=== PATIENT | female | born 1990 | race Caucasian/White ===

== ENCOUNTER 2016-07-27 12:01 | Emergency (ER) | payer MEDICAID, OTHER ==
--- NOTE | 2016-07-27 14:25 | EDDOCDS ---
Physician Documentation [facility] Name: Soraya Andrade Age: 26 yrs Sex: Female : 1990 Arrival Date: 07/27/2016 Time: 12:01 Bed TR8 Private MD: Yaneth Garner Disposition: 07/27/16 14:17 Discharged to Home/Self Care. Impression: Dental caries - Tooth Pain/Abscess/Fracture. - Condition is Stable. - Discharge Instructions: Dental Abscess, Dental Fracture, Dental Pain, [id number]. - Prescriptions for Clindamycin HCl 300 mg Oral Capsule - take 1 capsule by ORAL route every 6 hours; 40 capsule. Ibuprofen 800 mg Oral Tablet - take 1 tablet by ORAL route every 8 hours As needed take with food; 30 tablet. Ocate 5- 325 mg Oral Tablet - take 1 tablet by ORAL route every 6 hours As needed MDD: 4 tabs; 10 tablet. - Medication Reconciliation, Local Pharmacy Hours form. - Follow up: Dentist Your; When: 1 - 2 days; Reason: Further diagnostic work-up, Recheck today's complaints, Continuance of care. Follow up: Emergency Department; Reason: Worsening of conditions. - Problem is new. - Symptoms are unchanged. Historical: - Allergies: no known allergies; - Home Meds: 1. Effexor 75 mg oral tab 3 tab once daily - PMHx: Anxiety; Depression; - PSHx: none; - Social history: Smoking status: Patient uses tobacco products, current every day smoker. No barriers to communication noted, The patient speaks fluent Amharic, Speaks appropriately for age. - Family history: Not pertinent. - : The pt / caregiver states he / she is not on anticoagulants. Home medication list is obtained from the patient. - Exposure Risk Screening:: None identified. 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 1 in. (154.94 cm) (R); 14:20 BP 137 / 80; Pulse 98; Resp 18; Temp 98; Pulse Ox 99% ; ms18 12:04 Body Mass Index 26.45 (63.50 kg, 154.94 cm) dd6 MDM: 14:02 Financial registration complete. lg Signatures: Ayo Mark, Reg Reg lg Karena Franks PA-C PA-C ef1 Mana Quinones,RN RN ead Rosalie Mcgill RN RN ms18 MTDD
--- NOTE | 2016-07-27 14:25 | EDDOCDS ---
Nurse's Notes [facility] Name: Soraya Andrade Age: 26 yrs Sex: Female : 1990 Arrival Date: 07/27/2016 Time: 12:01 Bed TR8 Private MD: Yaneth Garner Diagnosis: Dental caries-Tooth Pain/Abscess/Fracture Presentation: 07/27 12:13 Presenting complaint: Patient states: pt c/o toothache since two days ago. pt states ead she is to have teeth removed from left side, also reports "lump" to right lower jaw. Adult Sepsis Screening: The patient does not have new or worsening altered mentation. Patient's respiratory rate is less than 22. Systolic blood pressure is greater than 100. Patient has a qSOFA score of 0- Negative Sepsis Screen. Suicide/Homicide risk assessment- the patient denies having any suicidal and/or homicidal ideations and does not present with any other emotional, behavioral or mental health complaints. 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 Transition of care: patient was not received from another setting of care. 12:13 Acuity: SHIRA Level 5 ead 12:13 Method Of Arrival: Walkin/Carried/Asstd ead Triage Assessment: 12:16 General: Appears in no apparent distress, comfortable, Behavior is appropriate for age, ead cooperative. Pain: Location: mouth Pain currently is 4 out of 10 on a pain scale. HIV screening NA for this visit Offered previously. Neurological: Level of Consciousness is awake, alert, obeys commands, Oriented to person, place, time. EENT: Reports pain in mouth Denies difficulty swallowing. Respiratory: Airway is patent Respiratory effort is even, unlabored. Derm: Skin is pink, warm & dry. 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 Effexor 75 mg oral tab 3 tab once daily - PMHx: Anxiety; Depression; - PSHx: none; - Social history: Smoking status: Patient uses tobacco products, current every day smoker. No barriers to communication noted, The patient speaks fluent Kyrgyz, Speaks appropriately for age. - Family history: Not pertinent. - : The pt / caregiver states he / she is not on anticoagulants. Home medication list is obtained from the patient. - Exposure Risk Screening:: None identified. Screenin:20 Screening information is obtained from the patient. Fall risk: No risks identified. ms18 Assistance ADL's: requires no assistance with activities of daily living. Abuse/DV Screen: The patient / caregiver reports he/she is: not in a situation that causes fear, pain or injury. Nutritional screening: No deficits noted. Advance Directives: There is no living will. home support is adequate. Assessment: 14:20 General: Appears in no apparent distress, uncomfortable, Behavior is appropriate for ms18 age, cooperative. Pain: Location: mouth. Pain: Pain currently is 9 out of 10 on a pain scale. Neurological: Level of Consciousness is awake, alert, obeys commands, Oriented to person, place, time. EENT: Poor dentition noted. Respiratory: No deficits noted. Derm: Skin is pink, warm & dry. Vital Signs: 12:04 BP 143 / 83; Pulse 105; Resp 18 S; Temp 98.0(O); Pulse Ox 100% on R/A; Weight 63.5 kg dd6 (R); Height 5 ft. 1 in. (154.94 cm) (R); 14:20 BP 137 / 80; Pulse 98; Resp 18; Temp 98; Pulse Ox 99% ; ms18 12:04 Body Mass Index 26.45 (63.50 kg, 154.94 cm) dd6 Vitals: 12:04 Log In Time: July 27, 2016 at 12:02. dd6 ED Course: 12:03 Patient visited by Monroe Chavez PCA. dd6 12:03 Patient moved to Waiting dd6 12:04 Yaneth Garner is Private Physician. dd6 12:05 Patient moved to Pre RCE dd6 12:15 Triage Initiated ead 13:43 Patient moved to Triage 2 ar3 14:01 [facility]anks [facility]. ef1 14:01 Marizol Choi MD is Attending Physician. ef1 14:01 Patient visited by Karena Franks PA-C. ef1 14:14 Patient visited by Karena Franks PA-C. ef1 14:16 Your, Dentist is Referral Physician. ef1 14:20 Patient moved to TR8 ms18 14:20 The patient / caregiver is instructed regarding the plan of care and ED course. ms18 Accompanied by Caregiver, Patient has correct armband on for positive identification. Property sent home with patient. :Personal belongings accompany Pt. 14:20 No IV's were initiated during this patient's visit. No procedures done that require ms18 assistance. Order Results: There are currently no results for this order. Outcome: 14:17 Discharge ordered by Provider. ef1 14:20 Discharge Assessment: Patient awake, alert and oriented x 3. No cognitive and/or ms18 functional deficits noted. Patient verbalized understanding of disposition instructions. patient administered narcotics - no. The following High Risk Discharge criteria are identified: None. Discharged to home ambulatory. Condition: good Condition: stable Condition: improved. Discharge instructions given to patient, Instructed on discharge instructions, follow up and referral plans. medication usage, Demonstrated understanding of instructions, medications, Pt was receptive of discharge instructions/ teaching. Prescriptions given X 3. No special radiology studies were completed. 14:24 Patient left the ED. ms18 Signatures: Monroe Chavez, RUNNER ON RUNNER ON dd6 Karena Franks PA-C PA-C ef1 Faby Camargo, RUNNER ON RUNNER ON ar3 Mana Quinones,RN RN Rosalie Curry RN RN ms18 HAYDEE
--- NOTE | 2016-07-29 15:25 | EDDOCDS ---
Physician Documentation [facility] Name: Soraya Andrade Age: 26 yrs Sex: Female : 1990 Arrival Date: 07/27/2016 Time: 12:01 Bed TR8 Private MD: Yaneth Garner Disposition: 07/27/16 14:17 Discharged to Home/Self Care. Impression: Dental caries - Tooth Pain/Abscess/Fracture. - Condition is Stable. - Discharge Instructions: Dental Abscess, Dental Fracture, Dental Pain, [id number]. - Prescriptions for Clindamycin HCl 300 mg Oral Capsule - take 1 capsule by ORAL route every 6 hours; 40 capsule. Ibuprofen 800 mg Oral Tablet - take 1 tablet by ORAL route every 8 hours As needed take with food; 30 tablet. [place] 5- 325 mg Oral Tablet - take 1 tablet by ORAL route every 6 hours As needed MDD: 4 tabs; 10 tablet. - Medication Reconciliation, Local Pharmacy Hours form. - Follow up: Dentist Your; When: 1 - 2 days; Reason: Further diagnostic work-up, Recheck today's complaints, Continuance of care. Follow up: Emergency Department; Reason: Worsening of conditions. - Problem is new. - Symptoms are unchanged. Historical: - Allergies: no known allergies; - Home Meds: 1. Effexor 75 mg oral tab 3 tab once daily - PMHx: Anxiety; Depression; - PSHx: none; - Social history: Smoking status: Patient uses tobacco products, current every day smoker. No barriers to communication noted, The patient speaks fluent Arabic, Speaks appropriately for age. - Family history: Not pertinent. - : The pt / caregiver states he / she is not on anticoagulants. Home medication list is obtained from the patient. - Exposure Risk Screening:: None identified. 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 1 in. (154.94 cm) (R); 14:20 BP 137 / 80; Pulse 98; Resp 18; Temp 98; Pulse Ox 99% ; ms18 12:04 Body Mass Index 26.45 (63.50 kg, 154.94 cm) dd6 MDM: 14:02 Financial registration complete. lg 14:34 [facility] Payment Agreement was scanned into [employer] and attached to record. lg 07/28 11:08 T-Sheet-- Draft Copy was scanned into [employer] and attached to record. gb Signatures: Angela Anderson, Reg Reg gb Ayo Mark, Reg Reg lg Karena Franks, CHRISTOPHER PAKarla ef1 Mana Quinones,RN RN eaRosalie Lund RN RN ms18 The chart was reviewed and I authenticate all verbal orders and agree with the evaluation and treatment provided.Attachments: 07/27 14:34 [facility] Payment Agreement lg 07/28 11:08 T-Sheet-- Draft Copy gb Chart Complete MTDD
--- NOTE | 2016-07-29 15:25 | EDDOCDS ---
Nurse's Notes [facility] Name: Soraya Andrade Age: 26 yrs Sex: Female : 1990 Arrival Date: 07/27/2016 Time: 12:01 Bed TR8 Private MD: Yaneth Garner Diagnosis: Dental caries-Tooth Pain/Abscess/Fracture Presentation: 07/27 12:13 Presenting complaint: Patient states: pt c/o toothache since two days ago. pt states ead she is to have teeth removed from left side, also reports "lump" to right lower jaw. Adult Sepsis Screening: The patient does not have new or worsening altered mentation. Patient's respiratory rate is less than 22. Systolic blood pressure is greater than 100. Patient has a qSOFA score of 0- Negative Sepsis Screen. Suicide/Homicide risk assessment- the patient denies having any suicidal and/or homicidal ideations and does not present with any other emotional, behavioral or mental health complaints. 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 Transition of care: patient was not received from another setting of care. 12:13 Acuity: SHIRA Level 5 ead 12:13 Method Of Arrival: Walkin/Carried/Asstd ead Triage Assessment: 12:16 General: Appears in no apparent distress, comfortable, Behavior is appropriate for age, ead cooperative. Pain: Location: mouth Pain currently is 4 out of 10 on a pain scale. HIV screening NA for this visit Offered previously. Neurological: Level of Consciousness is awake, alert, obeys commands, Oriented to person, place, time. EENT: Reports pain in mouth Denies difficulty swallowing. Respiratory: Airway is patent Respiratory effort is even, unlabored. Derm: Skin is pink, warm & dry. 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 Effexor 75 mg oral tab 3 tab once daily - PMHx: Anxiety; Depression; - PSHx: none; - Social history: Smoking status: Patient uses tobacco products, current every day smoker. No barriers to communication noted, The patient speaks fluent Mongolian, Speaks appropriately for age. - Family history: Not pertinent. - : The pt / caregiver states he / she is not on anticoagulants. Home medication list is obtained from the patient. - Exposure Risk Screening:: None identified. Screenin:20 Screening information is obtained from the patient. Fall risk: No risks identified. ms18 Assistance ADL's: requires no assistance with activities of daily living. Abuse/DV Screen: The patient / caregiver reports he/she is: not in a situation that causes fear, pain or injury. Nutritional screening: No deficits noted. Advance Directives: There is no living will. home support is adequate. Assessment: 14:20 General: Appears in no apparent distress, uncomfortable, Behavior is appropriate for ms18 age, cooperative. Pain: Location: mouth. Pain: Pain currently is 9 out of 10 on a pain scale. Neurological: Level of Consciousness is awake, alert, obeys commands, Oriented to person, place, time. EENT: Poor dentition noted. Respiratory: No deficits noted. Derm: Skin is pink, warm & dry. Vital Signs: 12:04 BP 143 / 83; Pulse 105; Resp 18 S; Temp 98.0(O); Pulse Ox 100% on R/A; Weight 63.5 kg dd6 (R); Height 5 ft. 1 in. (154.94 cm) (R); 14:20 BP 137 / 80; Pulse 98; Resp 18; Temp 98; Pulse Ox 99% ; ms18 12:04 Body Mass Index 26.45 (63.50 kg, 154.94 cm) dd6 Vitals: 12:04 Log In Time: July 27, 2016 at 12:02. dd6 ED Course: 12:03 Patient visited by Monroe Chavez PCA. dd6 12:03 Patient moved to Waiting dd6 12:04 Yaneth Garner is Private Physician. dd6 12:05 Patient moved to Pre RCE dd6 12:15 Triage Initiated ead 13:43 Patient moved to Triage 2 ar3 14:01 [facility] ef1 14:01 Marizol Choi MD is Attending Physician. ef1 14:01 Patient visited by Karena Franks PA-C. ef1 14:14 Patient visited by Karena Franks PA-C. ef1 14:16 Your, Dentist is Referral Physician. ef1 14:20 Patient moved to TR8 ms18 14:20 The patient / caregiver is instructed regarding the plan of care and ED course. ms18 Accompanied by Caregiver, Patient has correct armband on for positive identification. Property sent home with patient. :Personal belongings accompany Pt. 14:20 No IV's were initiated during this patient's visit. No procedures done that require ms18 assistance. 14:34 [facility] Payment Agreement was scanned into [employer] and attached to record. 07/28 11:08 T-Sheet-- Draft Copy was scanned into [employer] and attached to record. gb Order Results: There are currently no results for this order. Outcome: 07/27 14:17 Discharge ordered by Provider. ef1 14:20 Discharge Assessment: Patient awake, alert and oriented x 3. No cognitive and/or ms18 functional deficits noted. Patient verbalized understanding of disposition instructions. patient administered narcotics - no. The following High Risk Discharge criteria are identified: None. Discharged to home ambulatory. Condition: good Condition: stable Condition: improved. Discharge instructions given to patient, Instructed on discharge instructions, follow up and referral plans. medication usage, Demonstrated understanding of instructions, medications, Pt was receptive of discharge instructions/ teaching. Prescriptions given X 3. No special radiology studies were completed. 14:24 Patient left the ED. ms18 Signatures: Angela Anderson, Reg Reg gb Ayo Mark, Reg Reg lg Monroe Chavez, SCIENTIFIC MANAGER SCIENTIFIC MANAGER dd6 Karena Franks PA-C PA-C ef1 Faby Camargo, SCIENTIFIC MANAGER SCIENTIFIC MANAGER ar3 Mana QuinonesRN Rosalie Marcano RN RN ms18 Chart Complete MTDD
--- NOTE | 2016-07-29 15:25 | EDDOCDS ---
Physician Documentation [facility] Name: Soraya Andrade Age: 26 yrs Sex: Female : 1990 Arrival Date: 07/27/2016 Time: 12:01 Bed TR8 Private MD: Yaneth Garner Disposition: 07/27/16 14:17 Discharged to Home/Self Care. Impression: Dental caries - Tooth Pain/Abscess/Fracture. - Condition is Stable. - Discharge Instructions: Dental Abscess, Dental Fracture, Dental Pain, [id number]. - Prescriptions for Clindamycin HCl 300 mg Oral Capsule - take 1 capsule by ORAL route every 6 hours; 40 capsule. Ibuprofen 800 mg Oral Tablet - take 1 tablet by ORAL route every 8 hours As needed take with food; 30 tablet. [place] 5- 325 mg Oral Tablet - take 1 tablet by ORAL route every 6 hours As needed MDD: 4 tabs; 10 tablet. - Medication Reconciliation, Local Pharmacy Hours form. - Follow up: Dentist Your; When: 1 - 2 days; Reason: Further diagnostic work-up, Recheck today's complaints, Continuance of care. Follow up: Emergency Department; Reason: Worsening of conditions. - Problem is new. - Symptoms are unchanged. Historical: - Allergies: no known allergies; - Home Meds: 1. Effexor 75 mg oral tab 3 tab once daily - PMHx: Anxiety; Depression; - PSHx: none; - Social history: Smoking status: Patient uses tobacco products, current every day smoker. No barriers to communication noted, The patient speaks fluent Sami, Speaks appropriately for age. - Family history: Not pertinent. - : The pt / caregiver states he / she is not on anticoagulants. Home medication list is obtained from the patient. - Exposure Risk Screening:: None identified. 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 1 in. (154.94 cm) (R); 14:20 BP 137 / 80; Pulse 98; Resp 18; Temp 98; Pulse Ox 99% ; ms18 12:04 Body Mass Index 26.45 (63.50 kg, 154.94 cm) dd6 MDM: 14:02 Financial registration complete. lg 14:34 [facility] Payment Agreement was scanned into [employer] and attached to record. lg 07/28 11:08 T-Sheet-- Draft Copy was scanned into [employer] and attached to record. gb Signatures: Angela Anderson, Reg Reg gb Ayo Mark, Reg Reg lg Karena Franks, CHRISTOPHER PAKarla ef1 Mana Quinones,RN RN eaRosalie Lund RN RN ms18 The chart was reviewed and I authenticate all verbal orders and agree with the evaluation and treatment provided.Attachments: 07/27 14:34 [facility] Payment Agreement lg 07/28 11:08 T-Sheet-- Draft Copy gb Chart Complete MTDD
== END 2016-07-27 14:24 | disposition home or self-care (01) ==
LOC: M ED 12:01
DX: K04.7 Periapical abscess without sinus (principal); K02.9 Dental caries, unspecified; S02.5XXA Fracture of tooth (traumatic), initial encounter for closed fracture; X58.XXXA Exposure to other specified factors, initial encounter; Y92.89 Other specified places as the place of occurrence of the external cause; Y93.89 Activity, other specified; Y99.8 Other external cause status; F41.9 Anxiety disorder, unspecified; F32.9 Major depressive disorder, single episode, unspecified; F17.200 Nicotine dependence, unspecified, uncomplicated; Z79.899 Other long term (current) drug therapy

== ENCOUNTER 2016-10-26 09:35 | Emergency (ER) | payer OTHER ==
[~2016-10-26] VITALS: Ht 157.5 cm; Wt 65.8 kg
[2016-10-26 09:35] VITALS: BP 143/85
[2016-10-26] MEDS ORDERED: TRAZ100T4 (09:44)
[2016-10-26] MEDS ORDERED: CLON-412 (09:44)
[2016-10-26] MEDS ORDERED: VENL75CA47 (09:44)
[2016-10-26] MEDS ORDERED: BETA0.0543 TOP (10:15)
== END 2016-10-26 10:35 | disposition home or self-care (01) ==
LOC: M ED 10:33
DX: R21 Rash and other nonspecific skin eruption (principal); F17.200 Nicotine dependence, unspecified, uncomplicated

== ENCOUNTER 2017-03-15 08:27 | Emergency (ER) | payer OTHER, SELFPAY ==
[~2017-03-15] VITALS: Ht 157.5 cm; Wt 63.6 kg
[~2017-03-15 08:27] MED LIST: BETA0.0543 TOP; CLON-412; TRAZ-136; VENL75CA47
[2017-03-15] MEDS ORDERED: LAMO5CHW PO (08:40)
[2017-03-15] MEDS ORDERED: CLON0.3T PO (08:40)
[2017-03-15] MEDS ORDERED: NS 1,000 ML IV ONE (09:00)
[2017-03-15 09:52] LABS: METHADONE URINE NEGATIVE (NEGATIVE)
[2017-03-15 09:53] LABS: BASO % 0.6 % (0.0-1.0); EOS # 0.2 K/mm3 (0.0-0.50); LARGE UNSTAINED CELL # 0.2 K/mm3 (0.0-0.4); LARGE UNSTAINED CELL % 1.8 % (0.0-4.0); LYMPH # 1.7 K/mm3 (1.5-6.5); LYMPH % 18.8 % (24.0-44.0); MEAN CORPUSCULAR HEMOGLOBIN 31.8 pg (27.0-33.0); MEAN CORPUSCULAR HGB CONC 33.8 g/dl (32.0-36.5); MEAN CORPUSCULAR VOLUME 93.9 fl (80.0-96.0); MONO # 0.4 K/mm3 (0.0-0.8); MONO % 5.2 % (0.0-5.0); NEUTROPHILS % 71.6 % (36.0-66.0); PLATELET COUNT, AUTOMATED 180 k/mm3 (150-450); RED CELL DISTRIBUTION WIDTH 13.3 % (11.5-14.5); WHITE BLOOD COUNT 8.4 K/mm3 (4.0-10.0)
[2017-03-15 10:01] LABS: CONTROL LINE HCG INT CTR LINE PRESENT
[2017-03-15 10:16] LABS: ALBUMIN/GLOBULIN RATIO 1.14 (1.00-1.93); ALKALINE PHOSPHATASE 72 U/L (45-117); ALT/SGPT 19 U/L (12-78); ANION GAP 7 MEQ/L (8-16); AST/SGOT 14 U/L (15-37); BILIRUBIN,DIRECT < 0.1 MG/DL (0.0-0.2); BILIRUBIN,TOTAL 0.2 MG/DL (0.2-1.0); BLOOD UREA NITROGEN 9 MG/DL (7-18); CARBON DIOXIDE LEVEL 30 MEQ/L (21-32); CHLORIDE LEVEL 103 MEQ/L (98-107); CREATININE FOR GFR 0.77 MG/DL (0.55-1.02); GLOMERULAR FILTRATION RATE > 60.0 (>60); GLUCOSE, FASTING 66 MG/DL (70-105); SODIUM LEVEL 140 MEQ/L (136-145); TOTAL PROTEIN 7.5 GM/DL (6.4-8.2)
[2017-03-15 10:17] VITALS: BP 108/67
[2017-03-15 10:31] LABS: INR 0.92
--- NOTE | 2017-03-15 10:31 | REP ---
Clinical: Headache and blurred vision . Comparison: 05/10/2006. Findings: The ventricles, sulci, and cisterns are normal in position and appearance. Matta-white differentiation is maintained. No acute intracranial hemorrhage, mass/mass effect, pathology or trauma/injury. No evidence for acute infarction. No extra-axial fluid collection. Calvarium is intact. Paranasal sinuses and mastoid air cells are clear. Impression: Normal noncontrast head CT. No evidence for acute intracranial pathology or trauma/injury. Signed by Ruy Schulte MD 03/15/2017 10:22 A
--- NOTE | 2017-03-15 10:54 | REP ---
Clinical: Chest pain . Comparison: 11/22/2015 . Technique: PA view. Findings: The mediastinum and cardiac silhouette are normal. The lung samuels are clear and without acute consolidation, effusion, or pneumothorax. The skeletal structures are intact and normal. Impression: 1. No acute cardiopulmonary process. Signed by Ruy Schulte MD 03/15/2017 10:45 A
[2017-03-15] MEDS ORDERED: VALT1TAB PO (12:01)
[2017-03-15] MEDS ORDERED: valACYclovir HCL 500 MG TAB PO ONE (12:15)
--- NOTE | 2017-03-16 20:55 | ECGEPIP ---
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
== END 2017-03-15 11:56 | disposition home or self-care (01) ==
LOC: M ED 08:27
DX: R55 Syncope and collapse (principal); B02.9 Zoster without complications; H53.8 Other visual disturbances; R00.1 Bradycardia, unspecified; F41.9 Anxiety disorder, unspecified; F32.9 Major depressive disorder, single episode, unspecified; F17.200 Nicotine dependence, unspecified, uncomplicated; Z79.899 Other long term (current) drug therapy

== ENCOUNTER 2017-04-16 14:26 | Emergency (ER) | payer MEDICAID, SELFPAY ==
[~2017-04-16] VITALS: Ht 157.5 cm; Wt 63.6 kg
[~2017-04-16 14:26] MED LIST changes: +CLON0.3T PO; +LAMO5CHW PO; +VALT1TAB PO
[2017-04-16] MEDS ORDERED: ONDANSETRON 4 MG ORAL DISINTEGRATING TAB (S0181) PO ONE (16:15)
[2017-04-16] MEDS ORDERED: VENLAFAXINE **XR** 75MG CAPSULE PO ONE (16:15)
[2017-04-16] MEDS ORDERED: ZOFR4TAB3 PO (16:16)
[2017-04-16 16:50] VITALS: BP 128/93
== END 2017-04-16 16:53 | disposition home or self-care (01) ==
LOC: M ED 14:26
DX: T50.995A Adverse effect of other drugs, medicaments and biological substances, initial encounter (principal); Y92.9 Unspecified place or not applicable; Y93.9 Activity, unspecified; Z79.899 Other long term (current) drug therapy

== ENCOUNTER 2017-06-23 15:57 | Emergency (ER) | payer MEDICAID, SELFPAY ==
[~2017-06-23] VITALS: Ht 157.5 cm; Wt 54.5 kg
[~2017-06-23 15:57] MED LIST changes: +ZOFR4TAB3 PO
[2017-06-23 18:00] LABS: BASO % 0.3 % (0.0-1.0); IMMATURE GRANULOCYTE % 0.4 % (0-0); LYMPH # 1.2 10^3/uL (1.5-6.5); LYMPH % 10.2 % (24.0-44.0); MEAN CORPUSCULAR HEMOGLOBIN 32.1 pg (27.0-33.0); MEAN CORPUSCULAR HGB CONC 35.7 g/dl (32.0-36.5); MEAN CORPUSCULAR VOLUME 89.9 fl (80.0-96.0); MONO # 0.4 10^3/uL (0.0-0.8); MONO % 3.2 % (0.0-5.0); NEUTROPHILS # 10.4 10^3/uL (1.8-7.7); NEUTROPHILS % 85.9 % (36.0-66.0); PLATELET COUNT, AUTOMATED 222 10^3/uL (150-450); RED CELL DISTRIBUTION WIDTH 13.2 % (11.5-14.5); WHITE BLOOD COUNT 12.1 10^3/uL (4.0-10.0)
[2017-06-23 18:19] LABS: MUCUS, URINE RFX LARGE (NEGATIVE); SPECIFIC GRAVITY UR AUTO RFX 1.025 (1.002-1.035); SQUAM EPITHELIAL CELL UR AURFX 3 /HPF (0-6)
[2017-06-23 18:32] LABS: ANION GAP 8 MEQ/L (8-16); BLOOD UREA NITROGEN 8 MG/DL (7-18); CALCIUM LEVEL 9.2 MG/DL (8.5-10.1); CARBON DIOXIDE LEVEL 25 MEQ/L (21-32); CHLORIDE LEVEL 106 MEQ/L (98-107); CREATININE FOR GFR 0.64 MG/DL (0.55-1.02); GLOMERULAR FILTRATION RATE > 60.0 (>60); GLUCOSE, FASTING 97 MG/DL (70-105); HCG, SERUM QUANTITATIVE 4160 MIU/ML; POTASSIUM SERUM 3.5 MEQ/L (3.5-5.1); SODIUM LEVEL 139 MEQ/L (136-145)
--- NOTE | 2017-06-23 18:40 | REPUSA ---
CLINICAL HISTORY: , vomiting and nausea. TECHNIQUE: Pelvic ultrasound, transabdominal and vaginal. Endovaginal was performed for more complete evaluation of the endometrial contents. COMPARISON: No study for comparison is available at the time of interpretation. Uterus: 6 x 3.7 x 4.1 cm. Normal without masses. Endometrial stripe: Early gestational sac at 5 weeks 2 days with yolk sac, without pole. Ovaries: Normal size. No masses. Pelvic fluid: Mild. IMPRESSION: Gestational sac at 5 weeks 2 days, with yolk sac but without pole. Recommended clos e clinical correlation with serial beta hCG's to establish viability, and follow-up ultrasound if bet a hCG's are increasing.
[2017-06-23] MEDS ORDERED: ZOFR4TAB3 PO (19:02)
[2017-06-23 19:15] VITALS: BP 134/82
== END 2017-06-23 19:16 | disposition home or self-care (01) ==
LOC: M ED 15:57
DX: O21.1 Hyperemesis gravidarum with metabolic disturbance (principal); Z3A.01 Less than 8 weeks gestation of pregnancy; Z32.01 Encounter for pregnancy test, result positive; O99.341 Other mental disorders complicating pregnancy, first trimester; O99.331 Smoking (tobacco) complicating pregnancy, first trimester; Z79.899 Other long term (current) drug therapy

== ENCOUNTER → 2017-06-25 | Outpatient (CLI) | payer MEDICAID, SELFPAY ==
[2017-06-25 13:35] LABS: ALBUMIN 4.2 GM/DL (3.2-5.2); ALKALINE PHOSPHATASE 58 U/L (45-117); ALT/SGPT 16 U/L (12-78); ANION GAP 10 MEQ/L (8-16); AST/SGOT 15 U/L (7-37); BILIRUBIN,TOTAL 0.5 MG/DL (0.2-1.0); BLOOD UREA NITROGEN 7 MG/DL (7-18); CALCIUM LEVEL 8.7 MG/DL (8.5-10.1); CARBON DIOXIDE LEVEL 25 MEQ/L (21-32); CHLORIDE LEVEL 105 MEQ/L (98-107); CHOLESTEROL LEVEL 165 MG/DL (<200); CREATININE FOR GFR 0.65 MG/DL (0.55-1.02); GLOMERULAR FILTRATION RATE > 60.0 (>60); GLUCOSE, FASTING 99 MG/DL (70-105); POTASSIUM SERUM 3.1 MEQ/L (3.5-5.1); SODIUM LEVEL 140 MEQ/L (136-145); TOTAL PROTEIN 7.2 GM/DL (6.4-8.2); TRIGLYCERIDES LEVEL 68 MG/DL (<150)
== END ==
LOC: M LAB 12:01
PROVIDERS: ATTEND Family Medicine Addiction Medicine
DX: Z00.01 Encounter for general adult medical examination with abnormal findings (principal); R81 Glycosuria; R63.4 Abnormal weight loss

== ENCOUNTER → 2017-06-25 | Outpatient (CLI) | payer SELFPAY | LOC: M LAB 12:07 | PROVIDERS: ATTEND Physician Assistant | DX: Z34.81 Encounter for supervision of other normal pregnancy, first trimester (principal) ==

== ENCOUNTER 2017-06-28 15:32 | Emergency (ER) | payer MEDICAID, SELFPAY ==
[~2017-06-28] VITALS: Ht 157.5 cm; Wt 59.1 kg
[2017-06-28] MEDS ORDERED: NS 1,000 ML IV ONE ×2 (17:00→17:45)
[2017-06-28] MEDS ORDERED: ONDANSETRON 4MG/2ML VIAL (J2405) IV ONE (17:00)
[2017-06-28 17:59] VITALS: BP 148/86
== END 2017-06-28 18:42 | disposition home or self-care (01) ==
LOC: M ED 15:32
DX: O21.0 Mild hyperemesis gravidarum (principal); Z3A.00 Weeks of gestation of pregnancy not specified; Z87.891 Personal history of nicotine dependence
CPT/HCPCS: 96361; 96374; 99284; J2405

== ENCOUNTER → 2017-06-28 | Outpatient (REF) | payer MEDICAID ==
[2017-06-28 18:44] LABS: BASO % 0.5 % (0.0-1.0); EOS # 0.1 10^3/uL (0.0-0.50); IMMATURE GRANULOCYTE % 0.3 % (0-0); LYMPH # 2.8 10^3/uL (1.5-6.5); LYMPH % 35.9 % (24.0-44.0); MEAN CORPUSCULAR HEMOGLOBIN 31.9 pg (27.0-33.0); MEAN CORPUSCULAR HGB CONC 34.9 g/dl (32.0-36.5); MEAN CORPUSCULAR VOLUME 91.5 fl (80.0-96.0); MONO # 0.5 10^3/uL (0.0-0.8); MONO % 6.6 % (0.0-5.0); NEUTROPHILS # 4.4 10^3/uL (1.8-7.7); NEUTROPHILS % 55.7 % (36.0-66.0); PLATELET COUNT, AUTOMATED 207 10^3/uL (150-450); RED CELL DISTRIBUTION WIDTH 13.2 % (11.5-14.5); WHITE BLOOD COUNT 7.9 10^3/uL (4.0-10.0)
[2017-06-28 19:13] LABS: HCG, SERUM QUANTITATIVE 12096 MIU/ML
[2017-06-30 12:08] LABS: HBsAg Prenatal NEGATIVE (NEGATIVE)
== END ==
LOC: M LAB REF 16:46
PROVIDERS: ATTEND Obstetrics & Gynecology
DX: O36.80X0 Pregnancy with inconclusive fetal viability, not applicable or unspecified (principal)

== ENCOUNTER 2017-07-01 11:18 | Emergency (ER) | payer MEDICAID ==
[~2017-07-01] VITALS: Ht 157.5 cm; Wt 59.1 kg
[2017-07-01] MEDS ORDERED: ONDANSETRON 4 MG ORAL DISINTEGRATING TAB (S0181) PO ONE (12:00)
[2017-07-01 12:13] LABS: MEAN CORPUSCULAR HGB CONC 35.8 g/dl (32.0-36.5); MEAN CORPUSCULAR VOLUME 89.5 fl (80.0-96.0); PLATELET COUNT, AUTOMATED 191 10^3/uL (150-450); RED CELL DISTRIBUTION WIDTH 12.9 % (11.5-14.5); WHITE BLOOD COUNT 7.5 10^3/uL (4.0-10.0)
[2017-07-01 12:36] LABS: METHADONE URINE NEGATIVE (NEGATIVE)
[2017-07-01 12:47] LABS: ALBUMIN 4.4 GM/DL (3.2-5.2); ALBUMIN/GLOBULIN RATIO 1.42 (1.00-1.93); ALKALINE PHOSPHATASE 57 U/L (45-117); ALT/SGPT 14 U/L (12-78); ANION GAP 12 MEQ/L (8-16); AST/SGOT 10 U/L (7-37); BILIRUBIN,DIRECT 0.2 MG/DL (0.0-0.2); BILIRUBIN,TOTAL 0.5 MG/DL (0.2-1.0); BLOOD UREA NITROGEN 8 MG/DL (7-18); CALCIUM LEVEL 8.9 MG/DL (8.5-10.1); CARBON DIOXIDE LEVEL 24 MEQ/L (21-32); CHLORIDE LEVEL 105 MEQ/L (98-107); GLOMERULAR FILTRATION RATE > 60.0 (>60); GLUCOSE, FASTING 108 MG/DL (70-105); POTASSIUM SERUM 3.2 MEQ/L (3.5-5.1); SODIUM LEVEL 141 MEQ/L (136-145); TOTAL PROTEIN 7.5 GM/DL (6.4-8.2)
[2017-07-01 14:52] VITALS: BP 141/81
== END 2017-07-01 14:57 | disposition home or self-care (01) ==
LOC: M ED 11:18
DX: F32.9 Major depressive disorder, single episode, unspecified (principal); F12.10 Cannabis abuse, uncomplicated; F17.200 Nicotine dependence, unspecified, uncomplicated
CPT/HCPCS: 80048; 80076; 80307; 84443; 85027; 99284; G0480

== ENCOUNTER 2017-07-22 11:48 | Emergency (ER) | payer OTHER, MEDICAID ==
[2017-07-22] MEDS: METOCLOPRAMIDE INJ 10MG/2ML VIAL (J2765) IV ×2 (13:10)
[2017-07-22] MEDS: NS 1,000 ML IV ×2 (13:10)
[2017-07-22] MEDS: diphenhydrAMINE INJ 50MG/ML VIAL (J1200) IV ×2 (13:10)
[2017-07-22 13:17] LABS: BASO % 0.3 % (0.0-1.0); EOS % 0.3 % (0.0-3.0); HEMOGLOBIN 13.5 g/dl (12.0-16.0); IMMATURE GRANULOCYTE % 0.4 % (0-0); LYMPH # 1.5 10^3/uL (1.5-6.5); MEAN CORPUSCULAR HEMOGLOBIN 32.4 pg (27.0-33.0); MEAN CORPUSCULAR HGB CONC 35.5 g/dl (32.0-36.5); MEAN CORPUSCULAR VOLUME 91.1 fl (80.0-96.0); MONO # 0.4 10^3/uL (0.0-0.8); MONO % 5.7 % (0.0-5.0); NEUTROPHILS # 5.5 10^3/uL (1.8-7.7); NEUTROPHILS % 73.3 % (36.0-66.0); PLATELET COUNT, AUTOMATED 177 10^3/uL (150-450); RED BLOOD COUNT 4.17 10^6/uL (4.00-5.40); RED CELL DISTRIBUTION WIDTH 13.2 % (11.5-14.5); WHITE BLOOD COUNT 7.5 10^3/uL (4.0-10.0)
[2017-07-22 13:48] LABS: ALBUMIN 4.1 GM/DL (3.2-5.2); ALBUMIN/GLOBULIN RATIO 1.24 (1.00-1.93); ALKALINE PHOSPHATASE 46 U/L (45-117); ALT/SGPT 17 U/L (12-78); ANION GAP 10 MEQ/L (8-16); AST/SGOT 12 U/L (7-37); BILIRUBIN,DIRECT 0.1 MG/DL (0.0-0.2); BILIRUBIN,TOTAL 0.3 MG/DL (0.2-1.0); BLOOD UREA NITROGEN 9 MG/DL (7-18); CALCIUM LEVEL 9.2 MG/DL (8.5-10.1); CARBON DIOXIDE LEVEL 27 MEQ/L (21-32); CHLORIDE LEVEL 102 MEQ/L (98-107); CREATININE FOR GFR 0.55 MG/DL (0.55-1.02); GLOMERULAR FILTRATION RATE > 60.0 (>60); GLUCOSE, FASTING 106 MG/DL (70-105); LIPASE 242 U/L (73-393); POTASSIUM SERUM 3.9 MEQ/L (3.5-5.1); SODIUM LEVEL 139 MEQ/L (136-145); TOTAL PROTEIN 7.4 GM/DL (6.4-8.2)
[2017-07-22 14:02] LABS: HCG, SERUM QUANTITATIVE 146191 MIU/ML
[2017-07-22 15:28] LABS: AMORPHOUS SEDIMENT RFX MODERATE (NEGATIVE); KETONE, URINE AUTO RFX 1+ mg/dL (NEGATIVE); LEUKOCYTE ESTERASE UR AUTO RFX NEGATIVE (NEGATIVE); MUCUS, URINE RFX SMALL (NEGATIVE); NITRITE, URINE AUTO RFX NEGATIVE (NEGATIVE); RBC, URINE AUTO RFX 0 /HPF (0-3); SPECIFIC GRAVITY UR AUTO RFX 1.019 (1.002-1.035); SQUAM EPITHELIAL CELL UR AURFX 3 /HPF (0-6); WBC, URINE AUTO RFX 0 /HPF (0-3)
== END 2017-07-22 15:51 | disposition home or self-care (01) ==
LOC: M ED 11:48
DX: O21.1 Hyperemesis gravidarum with metabolic disturbance (principal); O99.611 Diseases of the digestive system complicating pregnancy, first trimester; O99.341 Other mental disorders complicating pregnancy, first trimester; O20.8 Other hemorrhage in early pregnancy; Z3A.09 9 weeks gestation of pregnancy; Z79.899 Other long term (current) drug therapy
CPT/HCPCS: J1200

== ENCOUNTER → 2017-07-22 | Outpatient (REF) | payer OTHER | LOC: M LAB REF 13:57 | DX: Z34.01 Encounter for supervision of normal first pregnancy, first trimester (principal); Z3A.09 9 weeks gestation of pregnancy | CPT/HCPCS: 87086 ==

== ENCOUNTER → 2017-11-03 | Outpatient (CLI) | payer OTHER ==
[2017-11-03 15:30] LABS: HEMATOCRIT 32.7 % (36.0-47.0); HEMOGLOBIN 11.3 g/dl (12.0-15.5); MEAN CORPUSCULAR HEMOGLOBIN 32.3 pg (27.0-33.0); MEAN CORPUSCULAR HGB CONC 34.6 g/dl (32.0-36.5); MEAN CORPUSCULAR VOLUME 93.4 fl (80.0-96.0); PLATELET COUNT, AUTOMATED 187 10^3/uL (150-450); RED CELL DISTRIBUTION WIDTH 12.5 % (11.5-14.5)
[2017-11-03 16:31] LABS: GLUCOSE CHALLENGE TEST 1 HOUR 84 MG/DL (LESS THAN 140)
== END ==
LOC: M LAB 13:54
DX: Z34.02 Encounter for supervision of normal first pregnancy, second trimester (principal)
CPT/HCPCS: 82950

== ENCOUNTER → 2017-11-03 | Outpatient (REF) | payer OTHER, MEDICAID ==
[2017-11-03 12:23] LABS: BASO % 0.3 % (0.0-1.0); EOS # 0.1 10^3/uL (0.0-0.50); HEMATOCRIT 32.1 % (36.0-47.0); HEMOGLOBIN 10.9 g/dl (12.0-15.5); IMMATURE GRANULOCYTE % 1.8 % (0-3.0); LYMPH # 2.4 10^3/uL (1.5-6.5); LYMPH % 27.2 % (24.0-44.0); MEAN CORPUSCULAR HEMOGLOBIN 32.3 pg (27.0-33.0); MEAN CORPUSCULAR VOLUME 95.3 fl (80.0-96.0); MONO # 0.6 10^3/uL (0.0-0.8); MONO % 6.7 % (0.0-5.0); NEUTROPHILS # 5.6 10^3/uL (1.8-7.7); PLATELET COUNT, AUTOMATED 181 10^3/uL (150-450); RED BLOOD COUNT 3.37 10^6/uL (4.00-5.40); RED CELL DISTRIBUTION WIDTH 12.5 % (11.5-14.5); WHITE BLOOD COUNT 8.9 10^3/uL (4.0-10.0)
[2017-11-03 12:42] LABS: ALBUMIN 2.8 GM/DL (3.2-5.2); ALKALINE PHOSPHATASE 64 U/L (45-117); ALT/SGPT 18 U/L (12-78); ANION GAP 8 MEQ/L (8-16); AST/SGOT 16 U/L (7-37); BILIRUBIN,TOTAL 0.3 MG/DL (0.2-1.0); BLOOD UREA NITROGEN 7 MG/DL (7-18); CALCIUM LEVEL 8.6 MG/DL (8.5-10.1); CARBON DIOXIDE LEVEL 25 MEQ/L (21-32); CHLORIDE LEVEL 106 MEQ/L (98-107); CREATININE FOR GFR 0.49 MG/DL (0.55-1.30); GLOMERULAR FILTRATION RATE > 60.0 (>60); GLUCOSE, FASTING 83 MG/DL (70-100); POTASSIUM SERUM 3.7 MEQ/L (3.5-5.1); SODIUM LEVEL 139 MEQ/L (136-145); TOTAL PROTEIN 6.3 GM/DL (6.4-8.2)
[2017-11-03 13:48] LABS: ERYTHROCYTE SEDIMENTATION RATE 33 mm/hr (0-20)
== END ==
LOC: M LAB REF 11:58
DX: R21 Rash and other nonspecific skin eruption (principal)

== ENCOUNTER → 2017-11-03 | Outpatient (CLI) | payer OTHER ==
[2017-11-03 16:07] LABS: CPK CREATINE PHOSPHOKINASE 62 U/L (26-192)
[2017-11-03 16:07] LABS: LDH LACTATE DEHYDROGENASE 168 U/L (84-246)
[2017-11-06 00:07] LABS: ANTINUCLEAR ANTIBODIES DIRECT Negative (Negative)
[2017-11-06 00:07] LABS: ALDOLASE 5.6 U/L (3.3-10.3)
== END ==
LOC: M LAB 13:51
DX: R21 Rash and other nonspecific skin eruption (principal)
CPT/HCPCS: 82550

== ENCOUNTER 2017-12-01 13:54 | Emergency (ER) | payer OTHER ==
[2017-12-01] MEDS: NS 1,000 ML IV ×2 (18:00)
[2017-12-01] MEDS: METOCLOPRAMIDE INJ 10MG/2ML VIAL (J2765) IV (19:13)
[2017-12-01 19:29] LABS: ANION GAP 12 MEQ/L (8-16); BLOOD UREA NITROGEN 9 MG/DL (7-18); CALCIUM LEVEL 8.2 MG/DL (8.5-10.1); CARBON DIOXIDE LEVEL 21 MEQ/L (21-32); CHLORIDE LEVEL 106 MEQ/L (98-107); CREATININE FOR GFR 0.48 MG/DL (0.55-1.30); GLOMERULAR FILTRATION RATE > 60.0 (>60); GLUCOSE, FASTING 97 MG/DL (70-100); POTASSIUM SERUM 3.1 MEQ/L (3.5-5.1); SODIUM LEVEL 139 MEQ/L (136-145)
[2017-12-01] MEDS: POTASSIUM CHLORIDE 10 MEQ SR TABLET PO (19:45)
== END 2017-12-02 00:07 | disposition home or self-care (01) ==
LOC: M ED 12-02 00:07
DX: O21.0 Mild hyperemesis gravidarum (principal); O99.283 Endocrine, nutritional and metabolic diseases complicating pregnancy, third trimester; E87.6 Hypokalemia; Z3A.28 28 weeks gestation of pregnancy
CPT/HCPCS: J2765

== ENCOUNTER → 2018-01-25 | Outpatient (REF) | payer OTHER, MEDICAID | LOC: M LAB REF 17:19 | DX: Z34.03 Encounter for supervision of normal first pregnancy, third trimester (principal) ==

== ENCOUNTER 2018-02-22 13:44 | Inpatient (IN) | payer OTHER, MEDICAID ==
[2018-02-22] MEDS: LR 1,000 ML IV (14:15)
[2018-02-22] MEDS: LACTATED RINGER'S 1000 ML IV (14:15)
[2018-02-22 14:16] LABS: HEMATOCRIT 33.9 % (36.0-47.0); HEMOGLOBIN 11.3 g/dl (12.0-15.5); MEAN CORPUSCULAR HEMOGLOBIN 27.8 pg (27.0-33.0); MEAN CORPUSCULAR HGB CONC 33.3 g/dl (32.0-36.5); MEAN CORPUSCULAR VOLUME 83.5 fl (80.0-96.0); PLATELET COUNT, AUTOMATED 236 10^3/uL (150-450); RED BLOOD COUNT 4.06 10^6/uL (4.00-5.40); RED CELL DISTRIBUTION WIDTH 14.5 % (11.5-14.5); WHITE BLOOD COUNT 15.1 10^3/uL (4.0-10.0)
[2018-02-22] MEDS ORDERED: FENTANYL 2MCG/ML ROPIVACAINE 0.2% IN 0.9% NACL 200ML IVBAG As Ordered (16:03)
[2018-02-22] MEDS ORDERED: OXYTOCIN DRIP 30 UNITS in APPROPRIATE DILUENT 1 EA IV (17:15)
[2018-02-22] MEDS: FENTANYL/ROPIVACAINE/NACL BAG 200 ML EPIDURAL (17:34)
[2018-02-22] MEDS ORDERED: diphenhydrAMINE INJ 50MG/ML VIAL (J1200) IV (17:45)
[2018-02-22] MEDS ORDERED: EPIDURAL COMMENT XX (17:45)
[2018-02-22] MEDS ORDERED: REFRIGERATOR IV KEYS XX (17:45)
[2018-02-22] MEDS ORDERED: NALOXONE INJ 0.4 MG/1 ML VIAL (J2310) IV (17:45)
[2018-02-22] MEDS ORDERED: ONDANSETRON 4MG/2ML VIAL (J2405) IV (17:45)
[2018-02-22] MEDS ORDERED: ePHEDrine SULFATE 25 MG/5 ML(5MG/ML) SYRINGE IV (17:45)
[2018-02-22] MEDS ORDERED: EPIDURAL/PCA KEYS XX (17:45)
[2018-02-22] MEDS ORDERED: LACTATED RINGER'S 1000 ML IV (17:45)
[2018-02-22] MEDS: OXYTOCIN DRIP 30 UNITS in APPROPRIATE DILUENT 1 EA IV (23:02)
[2018-02-22] MEDS: LIDOCAINE 1% MDV 20ML VIAL INFIL (23:14)
[2018-02-22] MEDS ORDERED: DIBUCAINE 1% OINTMENT 30GM TOP (23:15)
[2018-02-22] MEDS ORDERED: MEASLES,MUMPS,RUBELLA VACCINE INJ (MMR-II) (90707) SC (23:15)
[2018-02-22] MEDS ORDERED: DOCUSATE SODIUM 100 MG CAP PO (23:15)
[2018-02-22] MEDS ORDERED: METHYLERGONOVINE MALEATE 0.2 MG TAB PO (23:15)
[2018-02-22] MEDS ORDERED: RHOGAM 300 MCG (1500 IU) INJ (J2790) IM (23:15)
[2018-02-22] MEDS ORDERED: ANUSOL HC CREAM 30GM TOP (23:15)
[2018-02-22 23:24] LABS: ALT/SGPT 20 U/L (12-78); AST/SGOT 20 U/L (7-37); BILIRUBIN,TOTAL 0.4 MG/DL (0.2-1.0); CREATININE FOR GFR 0.59 MG/DL (0.55-1.30); GLOMERULAR FILTRATION RATE > 60.0 (>60); LDH LACTATE DEHYDROGENASE 212 U/L (84-246); URIC ACID 3.6 MG/DL (2.6-6.0)
[2018-02-23] MEDS: ACETAMINOPHEN 500 MG TAB PO (05:52)
[2018-02-23] MEDS: PRENATAL VITAMINS CHEWABLE TABLET PO (08:10)
[2018-02-23] MEDS: IBUPROFEN 800 MG TAB PO ×2 (08:11→17:48)
[2018-02-24] MEDS: ACETAMINOPHEN 500 MG TAB PO (00:35)
[2018-02-24] MEDS: PRENATAL VITAMINS CHEWABLE TABLET PO (09:10)
[2018-02-24] MEDS: IBUPROFEN 800 MG TAB PO (09:13)
== END 2018-02-24 13:30 | disposition home or self-care (01) | DRG 560 ==
LOC: M LDI 13:44 → M OBS 02-23 00:21
PROVIDERS: Advanced Practice Midwife
PROC: 3E0134Z Introduction of Serum, Toxoid and Vaccine into Subcutaneous Tissue, Percutaneous Approach (ICD-10-PCS; principal; 2018-02-22)
PROC: 0HQ9XZZ Repair Perineum Skin, External Approach (ICD-10-PCS; 2018-02-22)
DX: O99.344 Other mental disorders complicating childbirth (principal); O70.0 First degree perineal laceration during delivery; F32.9 Major depressive disorder, single episode, unspecified; Z37.0 Single live birth; Z3A.39 39 weeks gestation of pregnancy; F41.9 Anxiety disorder, unspecified; Z87.891 Personal history of nicotine dependence; Z91.410 Personal history of adult physical and sexual abuse

== ENCOUNTER 2018-09-09 21:11 | Emergency (ER) | payer OTHER ==
[~2018-09-09] VITALS: Ht 157.5 cm; Wt 61.4 kg
[~2018-09-09 21:11] MED LIST changes: +IBUP-1114 PO; -LAMO5CHW PO; +LAMO5CHW4 PO; +MAPA500T2 PO; +ONDA8TAB7; +PNVTAB4; +PRENTAB9 PO; +REGL10TA6 PO; -TRAZ-136; +TRAZ-163; +ZOFR4TAB14 PO; -ZOFR4TAB3 PO
[2018-09-09] MEDS ORDERED: ONDA4TAB5 SL (21:29)
[2018-09-09] MEDS ORDERED: PENI500T PO (22:04)
[2018-09-09] MEDS ORDERED: PERI0.126 PO (22:05)
[2018-09-09 22:13] VITALS: BP 133/67
[2018-09-09] MEDS ORDERED: PENICILLIN V POTASSIUM 500 MG TAB PO ONE (22:15)
== END 2018-09-09 22:15 | disposition home or self-care (01) ==
LOC: M ED 21:11
DX: K02.9 Dental caries, unspecified (principal); F17.210 Nicotine dependence, cigarettes, uncomplicated

== ENCOUNTER 2018-09-11 20:53 | Emergency (ER) | payer OTHER ==
[~2018-09-11 20:53] MED LIST changes: +ONDA4TAB5 SL; +PENI500T PO; +PERI0.126 PO
[2018-09-11] MEDS ORDERED: NS 1,000 ML IV ONE (21:45)
[2018-09-11] MEDS ORDERED: METOCLOPRAMIDE INJ 10MG/2ML VIAL (J2765) IV ONE (21:45)
[2018-09-11 22:21] LABS: BASO % 0.2 % (0.0-1.0); EOS # 0.1 10^3/uL (0.0-0.50); EOS % 0.5 % (0.0-3.0); HEMATOCRIT 39.1 % (36.0-47.0); LYMPH # 2.5 10^3/uL (1.5-6.5); LYMPH % 16.8 % (24.0-44.0); MEAN CORPUSCULAR HGB CONC 33.2 g/dl (32.0-36.5); MEAN CORPUSCULAR VOLUME 90.1 fl (80.0-96.0); MONO # 0.6 10^3/uL (0.0-0.8); NEUTROPHILS # 11.7 10^3/uL (1.8-7.7); PLATELET COUNT, AUTOMATED 205 10^3/uL (150-450); RED BLOOD COUNT 4.34 10^6/uL (4.00-5.40)
[2018-09-11 22:35] LABS: ALBUMIN 3.7 GM/DL (3.2-5.2); ALT/SGPT 20 U/L (12-78); BILIRUBIN,DIRECT < 0.1 MG/DL (0.0-0.2); BILIRUBIN,TOTAL 0.2 MG/DL (0.2-1.0); BLOOD UREA NITROGEN 8 MG/DL (7-18); CALCIUM LEVEL 8.7 MG/DL (8.5-10.1); CARBON DIOXIDE LEVEL 25 MEQ/L (21-32); CHLORIDE LEVEL 106 MEQ/L (98-107); CREATININE FOR GFR 0.58 MG/DL (0.55-1.30); GLOMERULAR FILTRATION RATE > 60.0 (>60); GLUCOSE, FASTING 109 MG/DL (70-100); LIPASE 118 U/L (73-393); POTASSIUM SERUM 3.6 MEQ/L (3.5-5.1); SODIUM LEVEL 140 MEQ/L (136-145); TOTAL PROTEIN 6.8 GM/DL (6.4-8.2)
[2018-09-11 22:39] LABS: HCG, SERUM QUALITATIVE POSITIVE (NEGATIVE)
[2018-09-11] MEDS ORDERED: LACTULOSE 20 GM/30 ML SYRUP UD PO ONE (22:45)
[2018-09-11 23:08] LABS: APPEARANCE, URINE HAZY (CLEAR); BACTERIA, URINE AUTO NEGATIVE (NEGATIVE); BILIRUBIN, URINE AUTO NEGATIVE (NEGATIVE); BLOOD, URINE BLOOD NEGATIVE (NEGATIVE); COLOR, URINE AMBER (YELLOW); GLUCOSE, URINE (UA) AUTO NEGATIVE (NEGATIVE); KETONE, URINE AUTO NEGATIVE (NEGATIVE); LEUKOCYTE ESTERASE, URINE AUTO NEGATIVE (NEGATIVE); MUCUS, URINE SMALL (NEGATIVE); NITRITE, URINE AUTO NEGATIVE (NEGATIVE); PROTEIN, URINE AUTO NEGATIVE (NEGATIVE); RBC, URINE AUTO 4 /HPF (0-3); SPECIFIC GRAVITY URINE AUTO 1.017 (1.002-1.035); SQUAMOUS EPITHELIAL CELL UR AU 8 /HPF (0-6); WBC, URINE AUTO 2 /HPF (0-3)
[2018-09-11] MEDS ORDERED: REGL10TA6 PO (23:44)
[2018-09-11] MEDS ORDERED: GYNE3CRE PV (23:49)
[2018-09-12 00:16] VITALS: BP 109/60
== END 2018-09-12 01:00 | disposition home or self-care (01) ==
LOC: EDBD 20:53 → M ED 20:56
DX: O99.619 Diseases of the digestive system complicating pregnancy, unspecified trimester (principal); K52.9 Noninfective gastroenteritis and colitis, unspecified; O99.340 Other mental disorders complicating pregnancy, unspecified trimester; F41.9 Anxiety disorder, unspecified; F33.9 Major depressive disorder, recurrent, unspecified; O99.330 Smoking (tobacco) complicating pregnancy, unspecified trimester; F17.200 Nicotine dependence, unspecified, uncomplicated; Z3A.00 Weeks of gestation of pregnancy not specified; Z79.2 Long term (current) use of antibiotics; Z79.899 Other long term (current) drug therapy
CPT/HCPCS: 36415; 80048; 80076; 81001; 83690; 84703; 85025; 96374; 99284; J2765

== ENCOUNTER → 2019-02-14 | Outpatient (CLI) | payer OTHER ==
[~2019-02-14] MED LIST changes: +GYNE3CRE PV
[2019-02-14 15:45] LABS: HEMATOCRIT 29.7 % (36.0-47.0); HEMOGLOBIN 10.2 g/dl (12.0-15.5); MEAN CORPUSCULAR HEMOGLOBIN 30.5 pg (27.0-33.0); MEAN CORPUSCULAR HGB CONC 34.3 g/dl (32.0-36.5); MEAN CORPUSCULAR VOLUME 88.9 fl (80.0-96.0); PLATELET COUNT, AUTOMATED 182 10^3/uL (150-450); RED BLOOD COUNT 3.34 10^6/uL (4.00-5.40); WHITE BLOOD COUNT 8.4 10^3/uL (4.0-10.0)
== END ==
LOC: M LAB 13:54
PROVIDERS: ATTEND Obstetrics & Gynecology
DX: Z36.89 Encounter for other specified antenatal screening (principal)